=== PATIENT | female | born 1985 | race Caucasian/White ===

== ENCOUNTER 2019-06-02 13:37 | Observation (INO) ==
[2019-06-02] MEDS ORDERED: Acetaminophen 325 MG TABLET PO PRN (18:22)
[2019-06-02] MEDS ORDERED: Naloxone 0.4 MG/ML INJ IVP PRN (18:22)
[2019-06-02 19:09] LABS: Basophils % 0.2 %; Eosinophils # 0.1 K/mcL (0.0-0.6); Eosinophils % 0.4 %; Hematocrit 38.9 % (35.3-44.9); Hemoglobin 13.3 g/dL (11.5-15.4); Immature Granulocytes % 0.4 % (0-4); Lymphocytes # 1.7 K/mcL (0.6-4.6); Lymphocytes % 10.8 %; Mean Corpuscular HGB Conc 34.2 g/dL (31.6-35.5); Mean Corpuscular Hemoglobin 31.6 pg (28.0-33.3); Mean Corpuscular Volume 92.4 fL (83.0-100.0); Mean Platelet Volume 9.3 fL (9.4-12.4); Monocytes # 1.1 K/mcL (0.0-1.3); Monocytes % 6.9 %; Neutrophils # 12.6 K/mcL (1.6-8.9); Platelet Count 258 K/mcL (140-400); Red Blood Count 4.21 M/mcL (3.82-4.97); Red Cell Distribution Width 13.7 % (11.5-14.5); Segmented Neutrophils % 81.3 %; White Blood Count 15.4 K/mcL (4.3-11.1)
[2019-06-02 19:32] LABS: Alanine Aminotransferase 35 Units/L (7-52); Albumin 3.7 g/dL (3.5-5.7); Albumin/Globulin Ratio 1.2 (1.1-2.2); Alkaline Phosphatase 63 Units/L (34-104); Aspartate Amino Transferase 28 Units/L (13-39); BUN/Creatinine Ratio 12 (6-26); Bilirubin,Total 0.5 mg/dL (0.3-1.0); Blood Urea Nitrogen 10 mg/dL (6-20); Calcium 8.6 mg/dL (8.6-10.3); Carbon Dioxide 23 mEq/L (23-29); Chloride 107 mEq/L (98-107); Glucose 134 mg/dL (70-105); Osmolality,Calculated 283 (280-300); Potassium 3.7 mEq/L (3.5-5.1); Sodium 136 mEq/L (136-145); Total Protein 6.7 g/dL (6.4-8.9); eGFR For African Americans > 60 (> 60); eGFR For Non-African Americans > 60 (> 60)
[2019-06-02 19:49] LABS: Hepatitis B Surface Antigen Nonreactive (Nonreactive)
[2019-06-02 19:51] LABS: Bilirubin,Urine Negative (Negative); Blood,Urine Trace (Negative); Clarity,Urine Cloudy (Clear); Color,Urine Yellow (Yellow); Glucose,Urine (UA) Normal (Normal); Ketones,Urine Negative (Negative); Leukocyte Esterase,Urine Large (Negative); Nitrite,Urine Positive (Negative); PH,Urine 7.5 pH Units (5.0-8.0); Protein,Urine 30 mg/dL (Neg-Trace); Specific Gravity,Urine 1.013 (1.010-1.025); Urobilinogen,Urine Normal (Normal)
[2019-06-02 19:53] LABS: Hyaline Casts,Urine None Seen per lpf (None-Few); Squamous Epithelial Cell,Urine Moderate per lpf (None-Few); WBC,Urine TNTC per hpf (0-3)
[2019-06-02 20:00] LABS: Amphetamine Screen,Urine Negative ng/mL (Cutoff=1000); Barbiturate Screen,Urine Negative ng/mL (Cutoff=200); Benzodiazepines Screen,Urine Negative ng/mL (Cutoff=200); Cannabinoid Screen,Urine Positive ng/mL (Cutoff = 50); Cocaine Screen,Urine Positive ng/mL (Cutoff= 300); Opiate Screen,Urine Negative ng/mL (Cutoff=300); Phencyclidine Screen,Urine Negative ng/mL (Cutoff=25)
[2019-06-02] MEDS: cefTRIAXone 2,000 MG in Water for inj. (sterile) 20 ML IVP SCH (20:00)
[2019-06-02] MEDS: Azithromycin 500 MG in 0.9 % Sodium Chloride 250 ML IVPB SCH (20:00)
[2019-06-02] MEDS: Ringers Solution, Lactated 1,000 ML IVC SCH (20:01)
[2019-06-02] MEDS: Acetaminophen IV 1,000 MG/100 ML INFUS..BTL IVPB SCH (20:01)
[2019-06-02 20:15] LABS: Bacteria,Urine Few per hpf (None-Few); Yeast,Urine Few per hpf (None Seen)
[2019-06-02 20:17] LABS: Hepatitis B Core IgM Nonreactive (Nonreactive)
[2019-06-02 20:18] LABS: HIV-1&2 Antibody & p24 Ag Nonreactive (Nonreactive)
[2019-06-02 20:19] LABS: Hepatitis A Antibody IgM Nonreactive (Nonreactive)
[2019-06-02 20:19] LABS: Gardnerella DNA DETECTED (Not Detect); Trichomonas DNA Not Detected (Not Detect)
[2019-06-02 20:20] LABS: Candida DNA Not Detected (Not Detect)
[2019-06-02 22:14] LABS: Hepatitis C Virus Antibody Reactive (Nonreactive)
[2019-06-02] MEDS: Ondansetron 4 MG/2 ML VIAL IVP PRN (23:01)
[2019-06-02] MEDS ORDERED: *HR* HYDROcodone/Acet 5/325 mg TABLET PO ONE (23:32)
[2019-06-03 06:02] LABS: Basophils % 0.3 %; Eosinophils # 0.1 K/mcL (0.0-0.6); Eosinophils % 1.3 %; Hemoglobin 12.7 g/dL (11.5-15.4); Immature Granulocytes % 0.2 % (0-4); Lymphocytes # 2.5 K/mcL (0.6-4.6); Lymphocytes % 22.6 %; Mean Corpuscular HGB Conc 34.3 g/dL (31.6-35.5); Mean Corpuscular Hemoglobin 31.9 pg (28.0-33.3); Mean Platelet Volume 9.8 fL (9.4-12.4); Monocytes # 0.8 K/mcL (0.0-1.3); Monocytes % 7.3 %; Neutrophils # 7.5 K/mcL (1.6-8.9); Platelet Count 255 K/mcL (140-400); Red Blood Count 3.98 M/mcL (3.82-4.97); Red Cell Distribution Width 13.8 % (11.5-14.5); Segmented Neutrophils % 68.3 %; White Blood Count 10.9 K/mcL (4.3-11.1)
[2019-06-03] MEDS: Acetaminophen IV 1,000 MG/100 ML INFUS..BTL IVPB SCH ×3 (06:22→17:10)
[2019-06-03 06:24] LABS: Alanine Aminotransferase 35 Units/L (7-52); Albumin 3.7 g/dL (3.5-5.7); Albumin/Globulin Ratio 1.2 (1.1-2.2); Alkaline Phosphatase 62 Units/L (34-104); Aspartate Amino Transferase 28 Units/L (13-39); BUN/Creatinine Ratio 14 (6-26); Bilirubin,Direct 0.1 mg/dL (0.0-0.2); Bilirubin,Indirect 0.4 mg/dL (0.0-1.0); Bilirubin,Total 0.5 mg/dL (0.3-1.0); Blood Urea Nitrogen 9 mg/dL (6-20); Calcium 8.7 mg/dL (8.6-10.3); Carbon Dioxide 22 mEq/L (23-29); Chloride 109 mEq/L (98-107); Glucose 90 mg/dL (70-105); Magnesium 2.1 mg/dL (1.6-2.6); Osmolality,Calculated 280 (280-300); Potassium 3.6 mEq/L (3.5-5.1); Sodium 136 mEq/L (136-145); Total Protein 6.7 g/dL (6.4-8.9); eGFR For African Americans > 60 (> 60); eGFR For Non-African Americans > 60 (> 60)
[2019-06-03 06:33] LABS: Thyroid Stimulating Hormone 0.558 mcIU/mL (0.340-5.600)
[2019-06-03] MEDS: Ondansetron 4 MG/2 ML VIAL IVP PRN (09:18)
[2019-06-03] MEDS: Ringers Solution, Lactated 1,000 ML IVC SCH (09:26)
[2019-06-03] MEDS: cefTRIAXone 2,000 MG in Water for inj. (sterile) 20 ML IVP SCH (16:42)
[2019-06-03] MEDS: Azithromycin 500 MG in 0.9 % Sodium Chloride 250 ML IVPB SCH (16:53)
[2019-06-03] MEDS ORDERED: Melatonin 3 MG TABLET PO SCH (21:00)
[2019-06-04] MEDS: Acetaminophen IV 1,000 MG/100 ML INFUS..BTL IVPB SCH ×2 (04:51→08:00)
[2019-06-04 05:16] LABS: Basophils % 0.4 %; Eosinophils # 0.2 K/mcL (0.0-0.6); Eosinophils % 1.7 %; Hematocrit 38.1 % (35.3-44.9); Hemoglobin 13.1 g/dL (11.5-15.4); Immature Granulocytes % 0.2 % (0-4); Lymphocytes # 2.9 K/mcL (0.6-4.6); Lymphocytes % 29.7 %; Mean Corpuscular HGB Conc 34.4 g/dL (31.6-35.5); Mean Corpuscular Hemoglobin 31.9 pg (28.0-33.3); Mean Corpuscular Volume 92.7 fL (83.0-100.0); Mean Platelet Volume 9.8 fL (9.4-12.4); Monocytes # 0.7 K/mcL (0.0-1.3); Monocytes % 7.2 %; Neutrophils # 5.9 K/mcL (1.6-8.9); Platelet Count 274 K/mcL (140-400); Red Blood Count 4.11 M/mcL (3.82-4.97); Red Cell Distribution Width 13.5 % (11.5-14.5); Segmented Neutrophils % 60.8 %; White Blood Count 9.7 K/mcL (4.3-11.1)
[2019-06-04 05:29] LABS: BUN/Creatinine Ratio 15 (6-26); Blood Urea Nitrogen 10 mg/dL (6-20); Calcium 8.9 mg/dL (8.6-10.3); Carbon Dioxide 24 mEq/L (23-29); Chloride 104 mEq/L (98-107); Glucose 104 mg/dL (70-105); Magnesium 1.9 mg/dL (1.6-2.6); Osmolality,Calculated 281 (280-300); Potassium 3.7 mEq/L (3.5-5.1); Sodium 136 mEq/L (136-145); eGFR For African Americans > 60 (> 60); eGFR For Non-African Americans > 60 (> 60)
[2019-06-04 06:50] VITALS: BP 116/73
[2019-06-04] MEDS: Ondansetron 4 MG/2 ML VIAL IVP PRN (08:01)
== END 2019-06-04 11:26 | disposition home or self-care (01) ==
LOC: 3BNU → SUATTDRO 16:28
PROVIDERS: ADMIT Pharmacist; ATTEND Internal Medicine

== ENCOUNTER 2020-01-28 04:02 | Inpatient (IN) ==
[2020-01-28] MEDS ORDERED: Metoclopramide 10 MG/2 ML VIAL IVP PRN (04:09)
[2020-01-28] MEDS ORDERED: *HR* FentaNYL (PF) 100 MCG/2 ML VIAL IVP PRN (04:09)
[2020-01-28] MEDS ORDERED: Famotidine 20 MG/2 ML VIAL IVP PRN (04:09)
[2020-01-28] MEDS ORDERED: Naloxone 0.4 MG/ML INJ IVP PRN (04:09)
[2020-01-28] MEDS ORDERED: Ondansetron 4 MG/2 ML VIAL IVP PRN (04:09)
[2020-01-28] MEDS ORDERED: Lidocaine 1% 20 ML MDV INFILT PRN (04:09)
[2020-01-28] MEDS ORDERED: miSOPROStoL 25 MCG TABLET VG PRN (04:11)
[2020-01-28 04:46] LABS: Basophils # 0.1 K/mcL (0.0-0.2); Basophils % 0.4 %; Eosinophils # 0.2 K/mcL (0.0-0.6); Eosinophils % 1.4 %; Hematocrit 37.4 % (35.3-44.9); Hemoglobin 12.6 g/dL (11.5-15.4); Lymphocytes # 2.5 K/mcL (0.6-4.6); Lymphocytes % 21.1 %; Mean Corpuscular HGB Conc 33.7 g/dL (31.6-35.5); Mean Corpuscular Hemoglobin 32.6 pg (28.0-33.3); Mean Corpuscular Volume 96.6 fL (83.0-100.0); Mean Platelet Volume 9.9 fL (9.4-12.4); Monocytes # 0.7 K/mcL (0.0-1.3); Monocytes % 5.9 %; Neutrophils # 8.3 K/mcL (1.6-8.9); Platelet Count 233 K/mcL (140-400); Red Blood Count 3.87 M/mcL (3.82-4.97); Segmented Neutrophils % 70.2 %; White Blood Count 11.8 K/mcL (4.3-11.1)
[2020-01-28] MEDS: Ringers Solution, Lactated 1,000 ML IVC SCH ×3 (04:52→16:32)
[2020-01-28 04:57] LABS: Amphetamine Screen,Urine Negative ng/mL (Cutoff=1000); Barbiturate Screen,Urine Negative ng/mL (Cutoff=200); Benzodiazepines Screen,Urine Negative ng/mL (Cutoff=200); Cannabinoid Screen,Urine Negative ng/mL (Cutoff = 50); Cocaine Screen,Urine Negative ng/mL (Cutoff= 300); Opiate Screen,Urine Negative ng/mL (Cutoff=300); Phencyclidine Screen,Urine Negative ng/mL (Cutoff=25)
[2020-01-28] MEDS: Oxytocin 20 units/ LR 1000 mL 20 UNIT/1,000 ML BAG IVC SCH ×2 (06:09→19:51)
[2020-01-28] MEDS ORDERED: EPHEDrine 50 MG/ML VIAL IVP PRN (07:46)
[2020-01-28] MEDS ORDERED: Epidural Premix (fent/bupiv) 110 ML EP SCH (08:00)
[2020-01-28] MEDS ORDERED: miSOPROStoL 25 MCG TABLET PO SCH (08:30)
[2020-01-28] MEDS ORDERED: Mag Hydrox/Al Hydrox/Simeth 30 ML UDC PO PRN (09:19)
[2020-01-28] MEDS ORDERED: *HR* FentaNYL (PF) 100 MCG/2 ML VIAL ONE (14:22)
[2020-01-28] MEDS ORDERED: Ropivacaine/PF 0.2% 20 ML VIAL ONE (14:22)
[2020-01-28] MEDS ORDERED: Oxytocin 20 units/ LR 1000 mL 20 UNIT/1,000 ML BAG IVC ONE (19:47)
[2020-01-28] MEDS ORDERED: Oxytocin 20 units/ LR 1000 mL 20 UNIT/1,000 ML BAG IVC SCH (20:03)
[2020-01-28] MEDS ORDERED: Measles/Mumps/Rubella Vacc 0.5 ML VIAL SQ PRN (20:03)
[2020-01-28] MEDS ORDERED: Acetaminophen 325 MG TABLET PO PRN (20:03)
[2020-01-28] MEDS ORDERED: Rho Immune Globulin 1,500 UNIT SYRINGE IM PRN (20:03)
[2020-01-28] MEDS: Ibuprofen 600 MG TABLET PO PRN (20:29)
[2020-01-28] MEDS: *HR* Buprenorphine HCl 8 MG TAB.SUBL SL SCH (20:29)
[2020-01-28] MEDS: Nicotine 14 MG PATCH.TD24 TD SCH (22:54)
[2020-01-29] MEDS: Ibuprofen 600 MG TABLET PO PRN ×2 (04:05→12:45)
[2020-01-29 07:26] LABS: Basophils # 0.1 K/mcL (0.0-0.2); Basophils % 0.3 %; Eosinophils # 0.1 K/mcL (0.0-0.6); Eosinophils % 0.7 %; Hematocrit 33.1 % (35.3-44.9); Immature Granulocytes % 0.5 % (0-4); Lymphocytes # 2.4 K/mcL (0.6-4.6); Lymphocytes % 12.9 %; Mean Corpuscular HGB Conc 33.2 g/dL (31.6-35.5); Mean Corpuscular Hemoglobin 32.9 pg (28.0-33.3); Mean Corpuscular Volume 99.1 fL (83.0-100.0); Monocytes # 1.1 K/mcL (0.0-1.3); Monocytes % 5.8 %; Neutrophils # 14.8 K/mcL (1.6-8.9); Platelet Count 188 K/mcL (140-400); Red Blood Count 3.34 M/mcL (3.82-4.97); Red Cell Distribution Width 14.1 % (11.5-14.5); Segmented Neutrophils % 79.8 %
[2020-01-29 07:27] LABS: White Blood Count 18.5 K/mcL (4.3-11.1)
[2020-01-29] MEDS: Prenatal Vit/FA 1 EACH TABLET PO SCH (08:21)
[2020-01-29] MEDS: *HR* Buprenorphine HCl 8 MG TAB.SUBL SL SCH ×2 (08:22→21:31)
[2020-01-29] MEDS: Nicotine 14 MG PATCH.TD24 TD SCH (08:32)
[2020-01-29] MEDS ORDERED: NON-FORMULARY MEDICATION 1 EACH EACH (Prenatal Caplet 1 TAB) PO SCH (09:00)
[2020-01-30] MEDS: Ibuprofen 600 MG TABLET PO PRN (06:40)
[2020-01-30 07:49] VITALS: BP 119/75
[2020-01-30] MEDS: Nicotine 14 MG PATCH.TD24 TD SCH (09:36)
[2020-01-30] MEDS: *HR* Buprenorphine HCl 8 MG TAB.SUBL SL SCH (09:37)
[2020-01-30] MEDS: Prenatal Vit/FA 1 EACH TABLET PO SCH (09:37)
== END 2020-01-30 11:00 | disposition home or self-care (01) | DRG 560 ==
LOC: 1NENULAB 04:02 → 1NENUOBS 21:47
PROVIDERS: ADMIT Student in an Organized Health Care Education/Training Program; ATTEND Student in an Organized Health Care Education/Training Program